=== PATIENT | male | born 1970 | race African-American/Black ===

== ENCOUNTER 2018-08-06 09:39 | Emergency (ER) | payer OTHER ==
[~2018-08-06] VITALS: Ht 172.7 cm; Wt 78.2 kg
[2018-08-06] MEDS ORDERED: blood pressure pill (09:51)
[2018-08-06] MEDS ORDERED: TOPA1TAB PO (09:54)
[2018-08-06] MEDS ORDERED: LISI10TA4 PO (09:54)
--- NOTE | 2018-08-06 10:43 | REP ---
CT Head without contrast HISTORY: Fall COMPARISON: None There is no intraparenchymal hemorrhage, acute infarct, mass or midline shift. The ventricular system is normal in appearance. There is no extra cerebral collection. There is no fracture. Mucosal thickening is present in the right maxillary sinus. IMPRESSION: There is no intracranial lesion. Electronically Signed by Slim Dias MD 08/06/2018 10:35 A
--- NOTE | 2018-08-06 10:52 | REP ---
CT cervical spine without contrast HISTORY: an fall COMPARISON: None There is no acute fracture or subluxation. Disc bulges are present at the C2-3 and C6-7 levels. Disc bulges with associated osteophyte formation are present at the C3-4 through C5-6 levels. There is minimal to mild narrowing of the spinal canal. Uncinate process hypertrophy is present at the C3-4 through C5-6 levels. This produces minimal to moderate narrowing of the neural foramina. The C3-4 through C5-6 intervertebral discs are decreased in height consistent with disc degeneration. IMPRESSION: 1. There is no acute fracture or subluxation. 2. There is cervical spondylosis at the C2-3 through C6-7 levels. Electronically Signed by Slim Dias MD 08/06/2018 10:44 A
[2018-08-06] MEDS ORDERED: IBUPROFEN 400 MG TAB PO ONE (12:00)
--- NOTE | 2018-08-06 12:04 | REP ---
LUMBAR SPINE SERIES: Five views. HISTORY: Trauma. FINDINGS: Five views of the lumbar spine show multiple surgical clips and sutures in the left mid abdomen. The spinous process at the L4 level is not visualized suggesting either surgical removal, developmental hypoplasia or bony destructive lesion. Is there a history of laminectomy? There is degenerative disc narrowing and anterior spur formation at L4-5. There is bilateral facet sclerosis at L4-5. No fractures seen. Pedicles and posterior elements are otherwise intact. Vertebral body heights are preserved. Sacrum and SI joints are unremarkable. IMPRESSION: Absence versus hypoplasia versus resection versus destructive lesion in the spinous process at L4. Degenerative disc disease at L4-5. No traumatic abnormality noted. If there is no history of laminectomy at L4-5, CT study of the lumbar spine should be considered. Electronically Signed by Jose Cruz Kunz MD 08/06/2018 08:12 P
--- NOTE | 2018-08-06 12:05 | REP ---
THORACIC SPINE SERIES: Three views. HISTORY: Trauma. FINDINGS: Thoracic vertebral body heights are preserved and alignment is normal. There is degenerative disc disease in the mid and lower thoracic levels anteriorly on the right side. Pedicles and posterior elements are intact in the thoracic spine. No paravertebral soft-tissue mass or edema is seen. IMPRESSION: Degenerative disc changes. No traumatic abnormality noted. Electronically Signed by Jose Cruz Kunz MD 08/06/2018 08:13 P
[2018-08-06 12:21] VITALS: BP 118/71
--- NOTE | 2018-08-06 14:51 | ECGEPIP ---
Stationary ECG Study [facility] - ED Test Date: 2018-08-06 Pat Name: RAMONA AMADOR Department: Room: - Gender: M Rn Progressive Care: : 1970 Requested By: SERGO MCCORD Order Number: [id number] Reading MD: Radha Balderas Measurements Intervals [place] Rate: 59 P: 27 WV: 193 QRS: 34 QRSD: 110 T: 8 QT: 389 QTc: 388 Interpretive Statements SINUS BRADYCARDIA NSTTW ABNORMALITY NO PRIOR FOR COMPARISON Electronically Signed On 08-06-2018 14:50:43 EST by Radha Balderas
--- NOTE | 2018-08-07 06:48 | ED PDOC ---
Post-Departure Follow-Up ls spine film report faxed to dr ramón armando and also pt sent certifed letter. when pt calls back please review ls spine film report. needs immediate follow up w pcp. Adolfo Salazar MD Aug 07, 2018 06:48
== END 2018-08-06 12:22 | disposition home or self-care (01) ==
LOC: M ED 09:39
DX: R51 Headache (principal); W01.0XXA Fall on same level from slipping, tripping and stumbling without subsequent striking against object, initial encounter; Y92.009 Unspecified place in unspecified non-institutional (private) residence as the place of occurrence of the external cause